=== PATIENT | male | born 1980 | race Caucasian/White ===

== ENCOUNTER 2021-06-17 11:31 | Emergency (ER) | payer MEDICAID ==
[~2021-06-17] VITALS: Ht 165.1 cm; Wt 78.0 kg
[2021-06-17 11:37] VITALS: BP 121/67
[2021-06-17] MEDS ORDERED: AMOXICILLIN/POTASSIUM CLAVULANATE 875/125MG TAB PO ONE (14:30)
== END 2021-06-17 15:19 | disposition home or self-care (01) ==
LOC: ER 11:31
DX: S01.511A Laceration without foreign body of lip, initial encounter (principal); X58.XXXA Exposure to other specified factors, initial encounter; Y93.89 Activity, other specified; Y92.89 Other specified places as the place of occurrence of the external cause; Y99.8 Other external cause status
CPT/HCPCS: 12011; 99283; Z7610